=== PATIENT | female | born 1960 | race African-American/Black ===

== ENCOUNTER 2025-01-03 18:39 | Inpatient (IN) | payer MEDICARE, OTHER ==
[~2025-01-03] VITALS: Ht 172.7 cm; Wt 78.0 kg
[~2025-01-03 18:39] MED LIST: ACET-868 PO; ASPI-605 PO; DOCU100C36 PO; ENOX80DI SQ; INSU100I4 SQ; INSU100V10 SQ; MINE133E RC; OXYC30TA2 PO; VANC1VIA2 IV; WARF5TAB PO
[2025-01-03 20:00] LABS: PLATELET COUNT (AUTO) 384 K/uL (150-450); RED BLOOD CELL COUNT(AUTO) 3.32 MIL/uL (4.0-5.2); RED CELL DISTRIBUTION WIDTH 16.5 % (11.5-15.0); WHITE BLOOD COUNT (AUTO) 6.8 K/uL (4.3-11.0)
[2025-01-03 20:11] LABS: CALCIUM, SERUM 8.8 mg/dL (8.5-10.1); CREATININE 1.0 mg/dL (0.6-1.3); SODIUM SERUM 137 mmol/L (136-145); UREA NITROGEN, BLOOD 26 mg/dL (7-18)
[2025-01-03] MEDS ORDERED: HALOPERIDOL LACTATE INJ 5 MG/ML VIAL ONE (20:25)
[2025-01-03 20:27] LABS: ASPARTATE AMINOTRANSFERASE 20 U/L (15-37); NT-PRO BNP 2186 pg/mL (0-125); TOTAL PROTEIN, SERUM 7.2 g/dL (6.4-8.2)
[2025-01-03] MEDS: HALOPERIDOL LACTATE INJ 5 MG/ML VIAL IM ONE (20:29)
[2025-01-03 20:38] LABS: INR 0.98 (0.91-1.10)
[2025-01-03] MEDS ORDERED: ASPIRIN 81 MG TAB.CHEW ONE (20:59)
[2025-01-03] MEDS: ASPIRIN 81 MG TAB.CHEW PO ONE (21:05)
[2025-01-03 22:00] VITALS: BP 165/94; TEMP 97.5; O2SAT 98
[2025-01-04] MEDS ORDERED: DEXTROSE 50%-WATER 50 ML DISP.SYRIN IV PRN (03:30)
[2025-01-04] MEDS ORDERED: Z GUARD REMEDY 4 OZ OINT TP PRN (03:30)
[2025-01-04] MEDS ORDERED: ACETAMINOPHEN 325 MG TABLET PO PRN (03:30)
[2025-01-04] MEDS ORDERED: MAG HYDROX/AL HYDROX/SIMETH 30 ML UDC PO PRN (03:30)
[2025-01-04] MEDS ORDERED: MAGNESIUM HYDROXIDE 30 ML UDC PO PRN (03:30)
[2025-01-04] MEDS ORDERED: ONDANSETRON HCL/PF 4 MG/2 ML VIAL IVP PRN (03:30)
[2025-01-04] MEDS ORDERED: hydrALAZINE HCL IV 20 MG VIAL IV PRN (03:30)
[2025-01-04 04:00] VITALS: BP 148/86; TEMP 98; O2SAT 97
[2025-01-04] MEDS ORDERED: TEMAZEPAM 7.5 MG CAPSULE PO PRN (04:00)
[2025-01-04] MEDS: BLOOD SUGAR DIAGNOSTIC 1 EACH STRIP IN SCH (06:51)
[2025-01-04 08:00] VITALS: BP 157/81; TEMP 98.2; O2SAT 99
[2025-01-04] MEDS: PANTOPRAZOLE 40 MG TABLET.DR PO SCH (08:07)
[2025-01-04] MEDS: ASPIRIN 81 MG TAB.CHEW PO SCH (09:30)
[2025-01-04] MEDS: HEPARIN SODIUM, PORCINE 5000 UNITS/1 ML VIAL SQ SCH (09:32)
[2025-01-04] MEDS: POTASSIUM CHLORIDE 20 MEQ TAB.PRT.SR PO SCH (09:57)
[2025-01-04] MEDS: FUROSEMIDE 40 MG/4 ML VIAL IV SCH (09:57)
[2025-01-04] MEDS ORDERED: EMPA10TA PO (11:15)
[2025-01-04] MEDS ORDERED: RISP2TAB5 PO (11:15)
[2025-01-04] MEDS ORDERED: INSU100V39 SQ (11:15)
[2025-01-04] MEDS ORDERED: APIX5TAB PO (11:15)
[2025-01-04] MEDS ORDERED: ATOR40TA PO (11:15)
[2025-01-04] MEDS ORDERED: PANT40TA2 PO (11:15)
[2025-01-04] MEDS ORDERED: ALBU2.5V38 IH (11:15)
[2025-01-04] MEDS ORDERED: FURO-145 PO (11:15)
[2025-01-04] MEDS ORDERED: POVI3780 TP (11:15)
[2025-01-04] MEDS ORDERED: FLUT1BLS6 IH (11:15)
[2025-01-04] MEDS ORDERED: MAGN400O6 PO (11:15)
[2025-01-04] MEDS ORDERED: GLUC1KIT IM (11:15)
[2025-01-04] MEDS ORDERED: DEXT12.511 PO (11:15)
[2025-01-04] MEDS ORDERED: POLY17PO4 PO (11:15)
[2025-01-04] MEDS ORDERED: AMLO10TA4 PO (11:15)
[2025-01-04] MEDS ORDERED: BISA10SU11 RC (11:15)
[2025-01-04] MEDS ORDERED: DIVA250T47 PO (11:15)
[2025-01-04] MEDS ORDERED: BUPR8TAB4 SL (11:15)
[2025-01-04 12:00] VITALS: BP 150/84; TEMP 98; O2SAT 99
[2025-01-04] MEDS: INSULIN REGULAR, HUMAN 100 UNIT/ML 3 ML VIAL SQ PRN (12:15)
[2025-01-04 13:21] LABS: CALCIUM, SERUM 9.0 mg/dL (8.5-10.1); CREATININE 1.0 mg/dL (0.6-1.3); SODIUM SERUM 142.0 mmol/L (136-145); UREA NITROGEN, BLOOD 21.0 mg/dL (7-18)
[2025-01-04 13:31] LABS: IRON, SERUM 76 ug/dl (50-175)
[2025-01-04 13:59] LABS: PLATELET COUNT (AUTO) 316 K/uL (150-450); RED BLOOD CELL COUNT(AUTO) 3.58 MIL/uL (4.0-5.2); RED CELL DISTRIBUTION WIDTH 17.2 % (11.5-15.0); WHITE BLOOD COUNT (AUTO) 5.1 K/uL (4.3-11.0)
[2025-01-04 16:00] VITALS: BP 156/86; TEMP 97.6; O2SAT 98
[2025-01-04] MEDS: LORAZEPAM 1 MG TABLET PO PRN (16:30)
[2025-01-04 20:29] VITALS: BP 147/85; TEMP 98.2; O2SAT 98
[2025-01-04 22:37] LABS: BLOOD, URINE TRACE-INTA Ery/uL (NEGATIVE); LEUKOCYTE ESTERASE ,URINE NEGATIVE (NEGATIVE); NITRITE, URINE NEGATIVE (NEGATIVE); UGLUCOSE 3+ mg/dL (NEGATIVE)
[2025-01-04 22:57] LABS: APPEARANCE,URINE SLIGHTLY CLOUDY (CLEAR)
[2025-01-04 22:58] LABS: ADD URINE CULTURE YES; SQUAMOUS EPITHELIAL CELL,UR Few /HPF (None Seen); YEAST,URINE Moderate /HPF (None Seen)
[2025-01-05 04:19] VITALS: BP 125/82; TEMP 98.2; O2SAT 98
[2025-01-05 07:00] VITALS: BP 145/78; TEMP 97.5; O2SAT 97
[2025-01-05 09:40] LABS: PLATELET COUNT (AUTO) 349 K/uL (150-450); RED BLOOD CELL COUNT(AUTO) 3.85 MIL/uL (4.0-5.2); RED CELL DISTRIBUTION WIDTH 17.2 % (11.5-15.0); WHITE BLOOD COUNT (AUTO) 5.6 K/uL (4.3-11.0)
[2025-01-05 09:51] LABS: ASPARTATE AMINOTRANSFERASE 21 U/L (15-37); CALCIUM, SERUM 8.7 mg/dL (8.5-10.1); CREATININE 1.0 mg/dL (0.6-1.3); PHOSPHORUS 3.1 mg/dL (2.5-4.9); SODIUM SERUM 139 mmol/L (136-145); TOTAL PROTEIN, SERUM 7.1 g/dL (6.4-8.2); UREA NITROGEN, BLOOD 20 mg/dL (7-18)
[2025-01-05] MEDS: BUPRENORPHINE HCL 8 MG TAB.SUBL SL SCH (13:28)
[2025-01-05] MEDS ORDERED: DIVALPROEX SODIUM 250 MG TABLET.DR PO SCH (17:00)
[2025-01-05] MEDS ORDERED: ATORVASTATIN 40 MG TABLET PO SCH (22:00)
[2025-01-06] MEDS ORDERED: POLYETHYLENE GLYCOL 3350 17 GM POWD.PACK PO SCH (09:00)
[2025-01-06] MEDS ORDERED: EMPAGLIFLOZIN 10 MG TABLET PO SCH (09:00)
[2025-01-06] MEDS ORDERED: AMLODIPINE BESYLATE 10 MG TABLET PO SCH (09:00)
[2025-01-06] MEDS ORDERED: FUROSEMIDE 20 MG TABLET PO SCH (09:00)
== END 2025-01-05 16:34 | DRG 281 ==
LOC: ER 18:45 → TELE 20:52
PROVIDERS: ADMIT Internal Medicine; ATTEND Nurse Practitioner Family
DX: I87.311 Chronic venous hypertension (idiopathic) with ulcer of right lower extremity (principal); G93.49 Other encephalopathy; I21.A1 Myocardial infarction type 2; L97.819 Non-pressure chronic ulcer of other part of right lower leg with unspecified severity; M79.89 Other specified soft tissue disorders; R79.89 Other specified abnormal findings of blood chemistry; Z86.73 Personal history of transient ischemic attack (TIA), and cerebral infarction without residual deficits; J44.9 Chronic obstructive pulmonary disease, unspecified; K21.9 Gastro-esophageal reflux disease without esophagitis; M19.90 Unspecified osteoarthritis, unspecified site; F31.9 Bipolar disorder, unspecified; Z86.14 Personal history of Methicillin resistant Staphylococcus aureus infection; E78.5 Hyperlipidemia, unspecified; D64.9 Anemia, unspecified; Z79.01 Long term (current) use of anticoagulants; Z79.4 Long term (current) use of insulin; Z79.899 Other long term (current) drug therapy; Z79.82 Long term (current) use of aspirin; E11.40 Type 2 diabetes mellitus with diabetic neuropathy, unspecified; L85.3 Xerosis cutis; X58.XXXA Exposure to other specified factors, initial encounter; S90.821A Blister (nonthermal), right foot, initial encounter; Y92.9 Unspecified place or not applicable; Z78.1 Physical restraint status; N20.0 Calculus of kidney; Z79.84 Long term (current) use of oral hypoglycemic drugs; Z79.51 Long term (current) use of inhaled steroids; I10 Essential (primary) hypertension; R74.8 Abnormal levels of other serum enzymes; R45.1 Restlessness and agitation; E11.622 Type 2 diabetes mellitus with other skin ulcer
CPT/HCPCS: 36415; 71045-TC; 80048-TC; 80053-TC; 80076-TC; 81001; 82728-TC; 82962-TC; 83540-TC; 83735-TC; 83880; 84100-TC; 84484-TC; 85025-TC; 85730-TC; 87081-TC; 87086-TC; 93970-TC; G0378; J1200; J1630; J1644; J1815; J1938